=== PATIENT | female | born 1985 | race Caucasian/White ===

== ENCOUNTER 2019-08-21 03:51 | Inpatient (IN) | payer OTHER ==
[2019-08-21] MEDS ORDERED: Lidocaine 1% INJ* 10 MG/ML 30 ML SDV ONE (04:21)
[2019-08-21] MEDS ORDERED: OXYTOCIN* 10 UNITS/ML 1 ML VIAL ONE (04:21)
[2019-08-21] MEDS ORDERED: OXYTOCIN* 10 UNITS/ML 1 ML VIAL IM ONE (04:40)
[2019-08-21] MEDS ORDERED: Witch Hazel PAD* JAR TOPICAL PRN (04:40)
[2019-08-21] MEDS ORDERED: Dibucaine 1% 28.35 GM TUBE PR PRN (04:40)
[2019-08-21] MEDS ORDERED: Acetaminophen TAB* 325 MG PO PRN (04:40)
--- NOTE | 2019-08-21 04:47 | HP ---
General Information - Reason for Visit IUP at 39-3/ in labor, delivery imminent - General Information Maternal Age: 34 Grav: 1 Para: 0 SAB: 0 IEA: 0 Estimated Due Date: 08/25/19 Determined By: LMP Gestational Age in Weeks/Days: 39-3/7 Maternal Blood Type and Rh: AB Positive - Results this Serology/RPR Result: Non-Reactive Rubella Result: Immune HBsAg Result: Negative HIV Result: Negative GBS Culture Result: Negative Past Medical History Delivery History: Hx Uncomplicated Vaginal Delivery Delivery History Comment: 04/05/2017 7lbs 15oz male. Pushed x 3 hours. Mediolateral episiotomy. Delivered at [facility] [place] with Jacquelyn Mckay LM Pertinent Past Medical History: See Records Past Medical History Comment: H/O joint problems and back pain Pertinent Past Surgical History: See Records Past Surgical History Comment: 1994 Bilateral removal of accessory navicular bone [id number] surgeries for compound right tibia/fibia/femur fracture. Rods, plate , screws in place 2009 removal of plate, screws. Dm remains Pertinent Family History: See Records Family History Comment: Father: DM Sister: Mental illness PGM: Anemia. , leukemia PGF: , DM MGM: , heart disease MGF: , unknown - Antepartal Records Antepartal Records: Reviewed, Uncomplicated Review of Systems Constitutional: Uncomfortable CV Complaint: No Respiratory: Shortness of Breath: No Gastrointestinal: No Nausea/Vomiting, Normal Bowel Movement Genitourinary: Leaking Fluid Musculoskeletal: Contractions Neurological: No Headache, No Visual Changes Movement: Normal Exam Allergies/Adverse Reactions: Allergies No Known Allergies Allergy (Verified 04/04/17 17:17) - Measurements Height: 5 ft 6 in Weight: 160 lb Weight in lbs: [phone] Body Mass Index (BMI): 25.8 Pre- Weight: 130 lb Weight Gained This : 30 lbs and 0 ozs - Exam Breast: Breast Exam Deferred CVA: No CVA Tenderness Extremities: No Edema Heart: Normal Rhythm/Heart Sounds HEENT: No Significant Findings Lungs: Clear Bilaterally Rectal: Rectal Exam Deferred Reflexes: DTR 2+ Thyroid: No Thyromegaly - Abdominal Exam Abdomen Exam: Non-Tender, Fundal Height Consistent with Dates - Ultrasound/Biophysical Profile Ultrasound Status: Not Done Targeted Exam Findings See L&D Outpatient Visit Provider Note for Findings: N/A Estimated Weight: 7.5-8lbs by Narcisa Cervical Exam: Complete Effacement: Complete Station: +3 - Vertex visible on the perineum Presenting Part: Vertex Membrane Status: Leaking Amniotic Fluid Evaluation: Meconium Bleeding/Discharge: Bloody Show EFM Findings - External Monitor Findings External Monitor Findings Comment: Cursory attempt at FHT while vertex on the perineum, delivery imminent Contractions: Regular, Strong Assessment/Plan - Assessment IUP at 39-3/7 in active labor Deliver imminent Verbal consent to treat obtained - Plan Plan: Admit - Anticipate Vaginal Delivery - Date/Time of Admission Date of Admission: 08/21/19 Time of Admission: 03:53
--- NOTE | 2019-08-21 04:54 | PROCNOTE ---
[facility] OB: Delivery Note - Delivery A Date of : 08/21/19 Time of : 03:56 [place] Sex: Male - "Philip" Score 1 Minute: 9 Score 5 Minutes: 9 Gestational Age in Weeks and Days at Delivery: 39 Weeks and 3 Days Delivery Method: Spontaneous Vaginal Labor: Spontaneous Did Patient attempt ?: N/A, No Previous Amniotic Fluid: Meconium Estimated Blood Loss: 300 Anesthesia/Analgesia: None Delivered By: Loni Rodas - Nursery Level of Nursery: Regular/Bedside - Perineum Perineal Injury: Vaginal Laceration - 4cm Left introital laceration repaired with 3-0 vicryl and 4-0 rapide under local infiltration 1% lidocaine. Anatomy restored and good hemostasis achieved. Pt tolerated well Perineal Repair: By Delivering Practioner - Events Delivery Events of Note: Pitocin Only After Delivery, Precipitous Delivery - Additional Delivery Notes Additional Delivery Notes: Length of labor 1 hour, 32 min. Pushed x 2 min. liveborn male. Slow, controlled delivery of head. OA to YANETH. Shoulders followed easily. vigorous with spontaneous cry. HR>110bpm. Short cord noted. Infant held at maternal pubic bone until cord stopped pulsing. Cord clamped x 2 and cut by FOB. Infant moved to maternal abdomen. Spontaneous delivery intact placenta. Membranes complete. Fundus initially atonic but firm to massage. 10 units IM pitocin given. Fundus firm to massage and remained firm. Repair of left introital vaginal laceration as above. EBL 300mL. At time of note mother and in stable condition. Planning to breast feed.
[2019-08-21] MEDS: Ibuprofen TAB* 600 MG PO SCH ×3 (05:01→19:34)
[2019-08-21 07:08] LABS: Urine Benzodiazepine Screen None Detected (None Detect); Urine Opiates Screen None Detected (None Detect)
[2019-08-21] MEDS: Docusate CAP* 100 MG PO SCH ×3 (08:22→19:33)
[2019-08-22] MEDS: Ibuprofen TAB* 600 MG PO SCH ×2 (02:31→08:53)
[2019-08-22 06:12] LABS: ABS Basophils 0.1 10^3/ul (0-0.2); ABS Eosinophils 0.1 10^3/ul (0-0.6); ABS Lymphocytes 1.9 10^3/ul (1.0-4.8); ABS Monocytes 0.6 10^3/ul (0-0.8); ABS Neutrophils 6.6 10^3/ul (1.5-7.7); Eosinophil % 0.9 %; Hematocrit 36 % (35-47); Hemoglobin 12.4 g/dL (12.0-16.0); Lymphocyte % 20.7 %; Mean Corpuscular HGB Conc 35 g/dL (31-36); Mean Corpuscular Hemoglobin 32 pg (27-31); Mean Corpuscular Volume 91 fL (80-97); Mean Platelet Volume 8.7 fL (7.4-10.4); Platelet Count 146 10^3/uL (150-450); Red Blood Count 3.88 10^6 /uL (3.70-4.87); Red Cell Distribution Width 15 % (10-15); White Blood Count 9.3 10^3/uL (3.5-10.8)
[2019-08-22 08:50] VITALS: BP 103/67
[2019-08-22] MEDS: Docusate CAP* 100 MG PO SCH (08:53)
[2019-08-22] MEDS ORDERED: Ferrous Gluconate TAB* 324 MG TAB PO SCH (09:00)
== END 2019-08-22 13:42 | disposition home or self-care (01) | DRG 806 ==
LOC: MCHOBOUT 03:51 → MCHOB 03:53
PROVIDERS: ADMIT Midwife; ATTEND Midwife
PROC: 10E0XZZ Delivery of Products of Conception, External Approach (ICD-10-PCS; principal; 2019-08-21)
PROC: 0KQM0ZZ Repair Perineum Muscle, Open Approach (ICD-10-PCS; 2019-08-21)
DX: O77.0 Labor and delivery complicated by meconium in amniotic fluid (principal); O71.4 Obstetric high vaginal laceration alone; Z37.0 Single live birth; Z3A.39 39 weeks gestation of pregnancy
CPT/HCPCS: 36415; 80307; 85025; A9270-GY; G0480; J2590

== ENCOUNTER 2021-11-14 10:21 | Inpatient (IN) ==
[2021-11-14] MEDS ORDERED: Lactated Ringers 1000 ml BAG 1,000 ML IV ONE (11:26)
[2021-11-14] MEDS ORDERED: Buffered Lidocaine 1% SYRIN 1 ml INTRADERM ONE (11:26)
[2021-11-14] MEDS ORDERED: Lactated Ringers 1000 ml BAG 1,000 ML IV SCH ×2 (12:00→21:00)
[2021-11-14] MEDS ORDERED: Oxytocin in LR 20 UNITS/1,000 ML BAG IVPB SCH ×2 (12:00→20:10)
[2021-11-14 12:23] LABS: ABS Basophils 0.1 10^3/ul (0-0.2); ABS Lymphocytes 1.3 10^3/ul (1.0-4.8); ABS Monocytes 0.5 10^3/ul (0-0.8); ABS Neutrophils 8.5 10^3/ul (1.5-7.7); Eosinophil % 0.3 %; Hematocrit 37 % (35-47); Hemoglobin 12.2 g/dL (12.0-16.0); Lymphocyte % 12.8 %; Mean Corpuscular HGB Conc 33 g/dL (31-36); Mean Corpuscular Hemoglobin 29 pg (27-31); Mean Corpuscular Volume 88 fL (80-97); Mean Platelet Volume 9.1 fL (7.4-10.4); Platelet Count 210 10^3/uL (150-450); Red Blood Count 4.27 10^6 /uL (3.70-4.87); Red Cell Distribution Width 15 % (10-15); White Blood Count 10.5 10^3/uL (3.5-10.8)
[2021-11-14 12:39] LABS: Urine Benzodiazepine Screen None Detected (None Detect); Urine Cannabinoids Screen None Detected (None Detect); Urine Opiates Screen None Detected (None Detect)
[2021-11-14 13:22] LABS: HIV 4th Generation Nonreactive (Nonreactive)
[2021-11-14] MEDS ORDERED: Ondansetron 4 mg VIAL 2 MG/ML 2 ml VIAL IV PRN (19:53)
[2021-11-14] MEDS ORDERED: Witch Hazel PAD JAR TOPICAL PRN (20:44)
[2021-11-14] MEDS ORDERED: Dibucaine 1% OINT 28.35 GM TUBE PR PRN (20:44)
[2021-11-15 06:28] LABS: ABS Basophils 0.1 10^3/ul (0-0.2); ABS Lymphocytes 1.4 10^3/ul (1.0-4.8); ABS Monocytes 0.8 10^3/ul (0-0.8); ABS Neutrophils 10.2 10^3/ul (1.5-7.7); Eosinophil % 0.2 %; Hematocrit 34 % (35-47); Hemoglobin 11.4 g/dL (12.0-16.0); Lymphocyte % 11.1 %; Mean Corpuscular HGB Conc 33 g/dL (31-36); Mean Corpuscular Hemoglobin 29 pg (27-31); Mean Corpuscular Volume 88 fL (80-97); Mean Platelet Volume 8.9 fL (7.4-10.4); Nucleated Red Blood Cells % 0.1; Platelet Count 184 10^3/uL (150-450); Red Blood Count 3.89 10^6 /uL (3.70-4.87); Red Cell Distribution Width 15 % (10-15); White Blood Count 12.4 10^3/uL (3.5-10.8)
[2021-11-15 16:40] VITALS: BP 110/63
== END 2021-11-16 12:50 | disposition home or self-care (01) | DRG 807 ==
LOC: MCHOBOUT 10:21 → MCHOB 11:28
PROVIDERS: ADMIT Advanced Practice Midwife; ATTEND Advanced Practice Midwife